=== PATIENT | female | born 1960 | race Caucasian/White ===

== ENCOUNTER 2025-07-22 08:56 | Day surgery (SDC) | payer OTHER ==
[~2025-07-22] VITALS: Ht 167.6 cm; Wt 87.0 kg
[~2025-07-22 08:56] MED LIST: AMOXICILLIN500 MG PO; CEFAZOLIN SODIUM 1 GM in SODIUM CHLORIDE 0.9% 100 ML IV SCH; IBLOOD GLUCOSE TEST STRIP 1 EA TEST VI PRN; LACTATED RINGER'S 1,000 ML IV SCH; LIDOCAINE HCL 1% 5 ML SDV INJ ONE; MAGNESIUM250 M2 PO; OMEPRAZOLE20 MG PO; SYNTHROID75 MCG PO; VITAMIN D350 MC3 PO
[2025-07-22 09:27] VITALS: BP 128/67
[2025-07-22] MEDS ORDERED: LIDOCAINE 1% W/ EPI 1:100,000 20 ML MDV ONE (10:21)
[2025-07-22] MEDS ORDERED: LIDOCAINE HCL 2% 5 ML SDV ONE (10:28)
[2025-07-22] MEDS ORDERED: fentaNYL citrate 100 MCG/2 ML VIAL ONE ×2 (10:28→11:20)
[2025-07-22] MEDS ORDERED: DEXAMETHASONE SOD PHOS 4 MG/ML VIAL ONE (10:28)
[2025-07-22] MEDS ORDERED: SUCCINYLCHOLINE IN 0.9% NACL 200 MG/10 ML SYRINGE ONE (10:28)
[2025-07-22] MEDS ORDERED: KETOROLAC TROMETHAMINE 30 MG/ML VIAL ONE (10:28)
[2025-07-22] MEDS ORDERED: ACETAMINOPHEN 1,000 MG/100 ML VIAL ONE (10:49)
--- NOTE | 2025-07-22 12:26 | NUR ---
07/22/25 1226 Sheets,Jo 1211 PT ARRIVED TO PACU ON 6L VIA MASK AND ORAL AIRWAY IN PLACE. RESP EVEN AND UNLABORED. 1215 PT MOVED HEAD AND PT FOLLOWED COMMANDS TO OPEN HER MOUTH AND ORAL AIRWAY REMOVED. 1221 MD AT BEDSIDE AND PT WAKES TO VERBAL STIMULI. PT REPORTS PRESSURE AROUND RIGHT EAR BUT NO PAIN. PT WAKES OFF AND ON AND LOOKING AROUND ROOM.
[2025-07-22] MEDS ORDERED: SEVOFLURANE 250 ML BTL INH ONE (12:54)
[2025-07-22 13:13] VITALS: BP 117/65
--- NOTE | 2025-07-22 13:17 | OR ---
[facility] [address], [place] [address] Signed DATE OF OPERATION: 07/22/2025 SURGEON: Jose Miguel Parkinson MD PREOPERATIVE DIAGNOSIS: Right parotid pleomorphic adenoma. POSTOPERATIVE DIAGNOSIS: Right parotid pleomorphic adenoma. PROCEDURE: Right superficial parotidectomy with facial nerve dissection. ASSISTANTS: Dr. Asencio and Dr. Friend. ANESTHESIA: General orotracheal. PREOPERATIVE HISTORY: Marisela is a 65-year-old lady with a right parotid tumor. This was biopsied with fine-needle showing a pleomorphic adenoma. She was taken to the operating room for the above-mentioned procedures. OPERATIVE PROCEDURE AND FINDINGS: After informed consent, the patient was taken to the operating room, placed in supine position where general orotracheal anesthesia was induced. The patient and procedure were verified. The head was turned to the left. The tumor in question measured about 2 x 2.5 cm was overlying the angle of the mandible, fairly superficial, very hard nodular tumor. The right face and neck were sterilely prepped and draped. Incision was marked and 1% lidocaine, epinephrine injected in the standard parotidectomy incision. The incision was then made through skin, subcutaneous tissue. Anterior flaps elevated to just beyond the tumor. The facial nerve was then identified at the stylomastoid foramen with sharp and blunt dissection and followed out peripherally. The most superior branch was identified. Parotid tissue divided off this branch with the ligature. The inferior branch was basically the marginal mandibular branch was followed out. Parotid tumor and parotid tissue dissected off the nerve and preserving it throughout the procedure. Hemostasis was obtained with needle point cautery and ligature. The specimen was removed and sent to Pathology in formalin. The wound was lavaged. Hemostasis was verified. Facial nerve testing was indicated intact in all branches. The wound was Electronically Signed By: JOSE MIGUEL PARKINSON MD 07/22/25 1317 PATIENT NAME: MARISELA DESHPANDE OPERATIVE REPORT DATE OF : 58 REPORT #: [id number] PHYSICIAN: JOSE MIGUEL PARKINSON MD PCP: LOVE CASTANON MD REPORT IS CONFIDENTIAL AND NOT TO BE RELEASED WITHOUT AUTHORIZATION [facility] [address] [facility] [place], [place] [address] Signed then closed over 7 mm flat Fabricio drain exiting a separate stab wound inferiorly with 4-0 interrupted Vicryl subcutaneous, 5-0 running nylon superiorly and yossi inferiorly. Skin was cleansed, Neosporin was applied. The patient was then awakened, extubated, transported to recovery room in good condition. No complications. BLOOD LOSS: Minimal. SPECIMEN: To Pathology. DRAIN: Flat Fabricio drain. COMPLICATIONS: None. Jose Miguel Parkinson MD GC/MODL /[id number] Copies: ~ Electronically Signed By: JOSE MIGUEL PARKINSON MD 07/22/25 1317 PATIENT NAME: MARISELA DESHPANDE OPERATIVE REPORT DATE OF : 58 REPORT #: [id number] PHYSICIAN: JOSE MIGUEL PARKINSON MD PCP: LOVE CASTANON MD REPORT IS CONFIDENTIAL AND NOT TO BE RELEASED WITHOUT AUTHORIZATION
[2025-07-22] MEDS ORDERED: HYDROCODONE/ACETA 5/325 TAB PO PRN (13:30)
--- NOTE | 2025-07-22 14:05 | NUR ---
IN PT ROOM FOR PAIN ASSESSMENT. PT STATES PAIN IS TOLERABLE AT THIS TIME AND SHE WOULD LIKE TO TRY AND URINE VOID. PT SITS AT BEDSIDE AND REPORTS NO INCREASE IN DIZZINESS. PT STANDS AT BEDSIDE AND REPORTS SLIGHTLY GROGGY. THIS RN STANDBY ASSIST TO RESTROOM FOR URINE VOID OF 400 ML CLEAR/YELLOW URINE. PT BACK TO ROOM AND THIS RN ASSISTS PT TO GET DRESSED. PT REQUESTS TO LAY DOWN FOR A LITTLE BIT LONGER. NO ACUTE CHANGES FROM PREVIOUS ASSESSMENT. DEMONSTRATION PERFORMED TO SHOW HOW TO APPLY GAUZE LAYER FOR PROTECTION TO PT AND PT FRIEND. PT STATES SHE HAS A CAT AT HOME THAT LIKES TO GET UP INTO HER FACE. CALL LIGHT WITHIN REACH. FRIEND AT BEDSIDE. PT STATES NO FURTHER NEEDS OR QUESTIONS AT THIS TIME.
--- NOTE | 2025-07-22 14:20 | NUR ---
PT ARRIVES BACK TO DS FROM PACU VIA STRETCHER. PT IS A&O, BUT PREFERS TO REST WITH HER EYES CLOSED. PT ANSWERING QUESTIONS APPROPRIATELY AT THIS TIME. REPORT RECEIVED FROM PETE CALLE, NO FAMILY/FRIEND AT BEDSIDE. LAYER OF GAUZE W/PAPER TAPE OVER WOUND FOR PROTECTION AND SCANT AMOUNT OF DRAINAGE. CALL LIGHT WITHIN REACH. PT STATES NO FURTHER NEEDS OR QUESTIONS AT THIS TIME. APPLESAUCE AND CRACKERS PROVIDED, PT STATES PAIN IS TOLERABLE, BUT WOULD LIKE TO GET A PRN PAIN MED ON BOARD. PRN PAIN MED GIVEN (SEE EMAR).
[2025-07-22 14:28] VITALS: BP 130/68
--- NOTE | 2025-07-22 14:52 | NUR ---
PT STATES SHE IS READY TO GO HOME. DC EDUCATION PROVIDED TO PT AND PT FRIEND. DEMONSTRATION OF TIANA DRAIN CARE PERFORMED, PT AND PT FRIEND STATE VERBAL UNDERSTANDING AT THIS TIME. TESHA VANCE ROUNDED ON PT AND ANSWERED ALL QUESTIONS. PT OFF OF UNIT AT 1530 TO PASSENGER SIDE OF VEHICLE VIA WC. ALL BELONGINGS IN PT POSSESSION. PT EDUCATED ABOUT PROTECTING SURGICAL SITE FROM CAT WHO REPORTEDLY COMES UP TO NECK DAILY, PT STATES VERBAL UNDERSTANDING AT THIS TIME. SUPPLIES FOR CARE OF SITE PROVIDED. PT AND PT STATE NO FURTHER NEEDS AT THIS TIME.
--- NOTE | 2025-07-24 13:54 | EKG ---
[facility] [address] [facility] [place], [place] [address] Signed Normal sinus rhythm Right bundle branch block Abnormal ECG No previous ECGs available Confirmed by Bel Lomeli DO ([id number]) on 07/24/2025 1:54:14 PM Electronically Signed By: BEL LOMELI DO 07/24/25 1354 PATIENT NAME: MARISELA DESHPANDE Electrocardiogram DATE OF : 58 PHYSICIAN: BEL LOMELI DO REPORT #: [id number] REPORT IS CONFIDENTIAL AND NOT TO BE RELEASED WITHOUT AUTHORIZATION
== END 2025-07-22 15:30 | disposition home or self-care (01) ==
LOC: DS 08:56
PROVIDERS: ATTEND Otolaryngology
PROC: 00BM0ZZ Excision of Facial Nerve, Open Approach (ICD-10-PCS; 2025-07-22)
PROC: 0CT80ZZ Resection of Right Parotid Gland, Open Approach (ICD-10-PCS; principal; 2025-07-22 10:10)
DX: D11.0 Benign neoplasm of parotid gland (principal); E03.9 Hypothyroidism, unspecified; K21.9 Gastro-esophageal reflux disease without esophagitis; Z79.890 Hormone replacement therapy; Z79.899 Other long term (current) drug therapy; Z88.1 Allergy status to other antibiotic agents
CPT/HCPCS: 00320; 88307; 93005; 93010; J0131; J0330; J0690; J1100; J1885; J2003; J2405; J2704; J3010; J7121